=== PATIENT | female | born 2000 | race Hispanic/Latino ===

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

== ENCOUNTER 2021-11-26 09:06 | Outpatient (RCR) | payer OTHER, SELFPAY | END 2022-02-11 11:34 | disposition home or self-care (01) | LOC: ANHDMC 09:06 | PROVIDERS: PCP Pediatrics; Visit Provider Obstetrics & Gynecology | DX: O24.419 Gestational diabetes mellitus in pregnancy, unspecified control (principal); Z71.89 Other specified counseling | CPT/HCPCS: G0108 ==

== ENCOUNTER 2022-02-24 07:16 | Outpatient (CLI) | payer OTHER, SELFPAY ==
[2022-02-24 08:27] LABS: Basophils Absolute Auto 0.1 K/mm3 (0.0-0.1); Basophils Percent Auto 0.4 % (0.2-1.2); Eosinophils Absolute Auto 0.3 K/mm3 (0-0.3); Eosinophils Percent Auto 2.3 % (0-4.4); Hematocrit 36.4 % (37.0-47.0); Hemoglobin 12.3 g/dL (12.0-15.0); Immature Granulocyte Absolute 0.05 K/mm3 (0.00-0.031); Immature Granulocyte Percent A 0.4 % (0-0.5); Lymphocytes Absolute Auto 4.11 K/mm3 (0.9-3.2); Lymphocytes Percent Auto 33.8 % (18.3-44.2); Mean Corpuscular HGB Conc 33.8 g/dl (32-36); Mean Corpuscular Hemoglobin 29.9 pg (26-34); Mean Corpuscular Volume 88.6 fl (80-100); Mean Platelet Volume 9.9 fl (7.4-10.4); Monocytes Absolute Auto 0.9 K/mm3 (0.1-0.6); Monocytes Percent Auto 7.6 % (2.6-8.5); Neutrophils Absolute Auto 6.7 K/mm3 (1.3-6.7); Neutrophils Percent Auto 55.5 % (45.5-73.1); Platelet Count Result 257 k/mm3 (150-375); Red Blood Count 4.11 M/mm3 (4.2-5.4); Red Cell Distribution Width 12.5 % (11.5-14.5); White Blood Count 12.2 K/mm3 (4.5-10.0)
[2022-02-24 09:25] LABS: HIV 1/2 Ab P24 Ag Result Negative (Negative)
[2022-02-24] MEDS: RHO(D) IMMUNE GLOBULIN 300 MCG/2 ML SYRINGE IM (12:39)
== END 2022-02-24 07:17 | disposition home or self-care (01) ==
LOC: ANHLAB 07:18
PROVIDERS: Student in an Organized Health Care Education/Training Program; PCP Pediatrics; Visit Provider Obstetrics & Gynecology
DX: Z34.90 Encounter for supervision of normal pregnancy, unspecified, unspecified trimester (principal); Z3A.00 Weeks of gestation of pregnancy not specified
CPT/HCPCS: 36415; 85025; 85461; 86703; 86850; 86900; 86901; 90384; 96372; G0432; J2790

== ENCOUNTER 2022-04-14 23:25 | Inpatient (IN) | payer OTHER, SELFPAY ==
[2022-04-15] VITALS (208 sets, daily range): BP systolic 89–163; BP diastolic 32–97; PULSE 25–131; RESP 16–18; TEMP 36.4–37.7; O2SAT 91–100; BMI 38.7
[2022-04-15 00:47] LABS: Basophils Percent Auto 0.3 % (0.2-1.2); Eosinophils Absolute Auto 0.1 K/mm3 (0-0.3); Eosinophils Percent Auto 0.9 % (0-4.4); Hematocrit 36.5 % (37.0-47.0); Hemoglobin 12.8 g/dL (12.0-15.0); Immature Granulocyte Absolute 0.09 K/mm3 (0.00-0.031); Immature Granulocyte Percent A 0.7 % (0-0.5); Lymphocytes Absolute Auto 3.51 K/mm3 (0.9-3.2); Lymphocytes Percent Auto 27.7 % (18.3-44.2); Mean Corpuscular HGB Conc 35.1 g/dl (32-36); Mean Corpuscular Hemoglobin 30.6 pg (26-34); Mean Corpuscular Volume 87.3 fl (80-100); Mean Platelet Volume 10.9 fl (7.4-10.4); Monocytes Percent Auto 7.8 % (2.6-8.5); Neutrophils Absolute Auto 7.9 K/mm3 (1.3-6.7); Neutrophils Percent Auto 62.6 % (45.5-73.1); Platelet Count Result 214 k/mm3 (150-375); Red Blood Count 4.18 M/mm3 (4.2-5.4); Red Cell Distribution Width 12.9 % (11.5-14.5); White Blood Count 12.7 K/mm3 (4.5-10.0)
--- NOTE | 2022-04-15 00:49 | LDADM ---
This patient, Ann Guevara, was admitted to Labor/Delivery/Recovery 106 on 04/14/22 at 23:25. Plans for labor, pain management and were discussed with patient. Patient/family oriented to hospital policies and general routines including ID bracelet, bed and alarms, visiting hours, pain management, procedures, bathroom and other care routines, personal items, smoking policy, room service/diet and guest tray routines, security routines, and visiting hours. Patient/Family are encouraged to report perceived risks to care and to ask questions if they do not understand what they are told or what they should do. See OBIX for further documentation.
[2022-04-15 00:58] LABS: Alanine Aminotransferase 14 U/L (6-35); Albumin Level 3.3 g/dL (3.5-5.1); Alkaline Phosphatase 227 U/L (38-126); Anion Gap 4 mmol/L (8-16); Aspartate Amino Transferase 19 U/L (14-36); Bilirubin,Total 0.3 mg/dL (0.2-1.3); Blood Urea Nitrogen 11 mg/dL (7-17); Calcium 8.7 mg/dL (8.4-10.2); Carbon Dioxide 22 mmol/L (22-30); Chloride 108 mmol/L (98-107); Estimated CRCL calculation 160 ml/min; Estimated Glomerular Filt Rate > 60; Glucose 180 mg/dL (65-110); Potassium 4.1 mmol/L (3.4-5.0); Sodium 134 mmol/L (137-145); Uric Acid 2.9 mg/dL (2.5-7.5)
[2022-04-15] MEDS: LACTATED RINGERS 1,000 ML 125 ML IV CONT ×2 (01:05→08:01)
[2022-04-15] MEDS: AMPICILLIN 2 GM/NS 100 ML 2 GM/100 ML BAG IVPB (01:06)
[2022-04-15 01:43] LABS: Glucose Point of Care 166 mg/dl (65-105)
[2022-04-15] MEDS: LABETALOL HCL INJ 100 MG/20 ML VIAL 20 MG IV PUSH (02:18)
[2022-04-15] MEDS: MAGNESIUM SULF 4 GM/WATER100ML 4 GM/100 ML BAG IVPB (02:34)
[2022-04-15] MEDS: MAGNESIUM SULF 20GM/WATER500ML 500 ML 50 MG IV CONT (02:54)
[2022-04-15] MEDS: AMPICILLIN 1 GM/NS 50 ML 1 GM/50 ML BAG IVPB ×2 (05:13→09:43)
[2022-04-15 05:40] LABS: Glucose Point of Care 171 mg/dl (65-105)
--- NOTE | 2022-04-15 06:36 | WPDANESEPP ---
Anes - Eval Pre Procedure Procedure: labor epidural Date/Time: 04/15/22 06:36 Surgeon: jolynn Preop Diagnosis: pain during labor Pre Op Diagnosis: Contractions Patient Data Age: 22 Gender: F Height: 1.57 m Weight: 96 kg Last Vital Signs Temp 36.8 C 04/15/22 05:30 Pulse 91 04/15/22 06:31 Resp 16 04/15/22 02:30 BP 133/73 04/15/22 06:31 Pulse Ox 99 04/15/22 04:00 O2 Del Method Room Air 04/15/22 00:46 Allergies Allergy/AdvReac Type Severity Reaction Status Date / Time No Known Allergies Allergy Mild Verified 04/01/22 09:14 Home Medications Medication Instructions Recorded Confirmed Type vitamins-iron fumarate 65 1 tablet PO DAILY 11/11/21 01/06/22 History mg iron-folic acid 1 mg tablet Laboratory Tests 04/15/22 04/15/22 04/15/22 00:20 00:20 00:20 WBC 12.7 K/mm3 H K/mm3 (4.5-10.0) RBC 4.18 M/mm3 L M/mm3 (4.2-5.4) Hgb 12.8 g/dL g/dL (12.0-15.0) Hct 36.5 % L % (37.0-47.0) MCV 87.3 fl fl (80-100) MCH 30.6 pg pg (26-34) MCHC 35.1 g/dl g/dl (32-36) RDW 12.9 % % (11.5-14.5) Plt Count 214 k/mm3 k/mm3 (150-375) MPV 10.9 fl H fl (7.4-10.4) Immature Gran % (Auto) 0.7 % H % (0-0.5) Neut % (Auto) 62.6 % % (45.5-73.1) Lymph % (Auto) 27.7 % % (18.3-44.2) Stearns % (Auto) 7.8 % % (2.6-8.5) Eos % (Auto) 0.9 % % (0-4.4) Baso % (Auto) 0.3 % % (0.2-1.2) Lymph # (Auto) 3.51 K/mm3 H K/mm3 (0.9-3.2) Stearns # (Auto) 1.0 K/mm3 H K/mm3 (0.1-0.6) Eos # (Auto) 0.1 K/mm3 K/mm3 (0-0.3) Baso # (Auto) 0.0 K/mm3 K/mm3 (0.0-0.1) Abs Immat Gran (auto) 0.09 K/mm3 H K/mm3 (0.00-0.031) Absolute Neuts (auto) 7.9 K/mm3 H K/mm3 (1.3-6.7) Absolute Nucleated RBC 0.0 K/mm3 K/mm3 (0.0-0.012) Nucleated RBC % 0.0 % % (0.0-0.2) Sodium Potassium Chloride Carbon Dioxide Anion Gap BUN Creatinine Estim Creat Clear Calc Estimated GFR Glucose POC Capillary Glucose Uric Acid Calcium Total Bilirubin AST ALT Alkaline Phosphatase Total Protein Albumin U Random Total Protein Urine Creatinine Protein/Creat Ratio 2 RPR Pending Blood Type O Negative Antibody Screen Negative 04/15/22 04/15/22 04/15/22 00:41 00:41 01:38 WBC RBC Hgb Hct MCV MCH MCHC RDW Plt Count MPV Immature Gran % (Auto) Neut % (Auto) Lymph % (Auto) Stearns % (Auto) Eos % (Auto) Baso % (Auto) Lymph # (Auto) Stearns # (Auto) Eos # (Auto) Baso # (Auto) Abs Immat Gran (auto) Absolute Neuts (auto) Absolute Nucleated RBC Nucleated RBC % Sodium 134 mmol/L L mmol/L (137-145) Potassium 4.1 mmol/L mmol/L (3.4-5.0) Chloride 108 mmol/L H mmol/L (98-107) Carbon Dioxide 22 mmol/L mmol/L (22-30) Anion Gap 4 mmol/L L mmol/L (8-16) BUN 11 mg/dL mg/dL (7-17) Creatinine 0.50 mg/dL L mg/dL (0.7-1.0) Estim Creat Clear Calc 160 ml/min ml/min Estimated GFR > 60 (59 - ) Glucose 180 mg/dL H mg/dL (65-110) POC Capillary Glucose 166 mg/dl H mg/dl (65-105) Uric Acid 2.9 mg/dL mg/dL (2.5-7.5) Calcium 8.7 mg/dL mg/dL (8.4-10.2) Total Bilirubin 0.3 mg/dL mg/d
[2022-04-15] MEDS: OXYTOCIN 30 UNITS/NS 500 ML 30 UNITS/500 ML BAG IV CONT (07:30)
[2022-04-15] MEDS: ONDANSETRON INJ 4 MG/2 ML VIAL IV PUSH (07:41)
--- NOTE | 2022-04-15 07:59 | PM.IMHP ---
H&P: HPI History of Present Illness Date/Time: 04/15/22 07:59 Chief Complaint: Intrauterine at term Narrative: 22-year-old G1 who presents with premature rupture of membranes at 35w2d. She reports good movement. She denies any abdominal pain, fevers, chills. She denies any vaginal bleeding. patient's has been complicated by gestational diabetes controlled with diet. Patient was also noted to have GBS bacteriuria Review of Systems Cardiovascular: Cardiovascular: Denies chest pain, Denies leg edema, Denies palpitations, Denies dyspnea and Denies dyspnea on exertion Respiratory: Respiratory: Denies cough, Denies dyspnea and Denies dyspnea on exertion Gastrointestinal: Gastrointestinal: Denies abdominal pain, Denies constipation, Denies diarrhea, Denies nausea and Denies vomiting Genitourinary: Genitourinary: Denies hematuria, Denies urinary frequency, Denies dysuria, Denies pelvic pain, Denies urinary incontinence and Denies vaginal discharge Neurologic: Reports system reviewed and no additional complaints, except as documented Psychiatric: Psychiatric: Reports no additional psychiatric complaints Endocrine: Endocrine: Denies palpitations PMFSH Past Medical History Medical History Abnormal glucose tolerance in Gestational diabetes Left forearm fracture Suppression of menstruation Surgical History Surgical History No history of previous surgery Social History Social History Smoking status: Never smoker Alcohol intake: never Substance use: never Substance use type: marijuana Last use: 08/25/2021 Lack of Transportation: No Lack of Food: Never True Current Housing: I Have Housing Concerned About Future Housing: No Difficulty Paying Gas/Electric Bills: No Difficulty Paying for Meds: No Currently Unemployed: No Education: High School Diploma/GED Difficulty w/ Childcare or Family Care: No Living arrangements: other Additional living arrangements comments: single Occupation/Education: student Gender identity (if verbalized by the patient): Female Sexual Orientation (if Verbalized by the Patient): Straight or Heterosexual Spiritual care concerns: No Meds Home Medications and Allergies Home Medications Medication Instructions Recorded Confirmed Type vitamins-iron fumarate 65 1 tablet PO DAILY 11/11/21 01/06/22 History mg iron-folic acid 1 mg tablet Allergies Allergy/AdvReac Type Severity Reaction Status Date / Time No Known Allergies Allergy Mild Verified 04/01/22 09:14 Vital Signs Vital Signs - 24 hr 04/15/22 00:16 04/15/22 00:45 04/15/22 01:00 Temperature Pulse Rate 70 73 86 Respiratory Rate Blood Pressure 160/88 H 142/86 H Pulse Oximetry Oxygen Delivery 04/15/22 01:15 04/15/22 01:31 04/15/22 01:30 Temperature 99.3 F Pulse Rate 74 76 Respiratory Rate 16 Blood Pressure 160/92 H 159/91 H Pulse Oximetry Oxygen Delivery 04/15/22 02:04 04/15/22 02:16 04/15/22 02:22 Temperature Pulse Rate 79 76 92 Respiratory Rate Blood Pressure 163/97 H 140/81 122/78 Pulse Oximetry Oxygen Delivery 04/15/22 02:31 04/15/22 02:35 04/15/22 02:40 Temperature Pulse Rate 79 94 Respiratory Rate Blood Pressure 139/79 134/63 Pulse Oximetry 98 97 Oxygen Delivery 04/15/22 02:45 04/15/22 02:30 04/15/22 02:50 Temperature 99.3 F Pulse Rate 90 91 Respiratory Rate 16 Blood Pressure 127/74 129/74 Pulse Oximetry 97 97 Oxygen Delivery 04/15/22 02:55 04/15/22 03:00 04/15/22 03:05 Temperature Pulse Rate 88 Respiratory Rate Blood Pressure 130/71 Pulse Oximetry 97 97 98 Oxygen Delivery 04/15/22 03:10 04/15/22 03:15 04/15/22 03:20 Temperature
[2022-04-15 09:05] LABS: Rapid Plasma Reagin Non-Reactive (NonReactive)
[2022-04-15 09:07] LABS: Glucose Point of Care 191 mg/dl (65-105)
[2022-04-15] MEDS: PHENYLEPHRINE 1,000 MCG/10 ML SYRINGE 100 MCG IV PUSH ×3 (09:50→10:11)
[2022-04-15] MEDS: INSULIN HUMAN REGULAR (*BKC) 100 UNITS in SODIUM CHLORIDE 0.9% IV 99 ML IV CONT (09:59)
[2022-04-15 10:06] LABS: Glucose Point of Care 183 mg/dl (65-105)
[2022-04-15 11:04] LABS: Glucose Point of Care 189 mg/dl (65-105)
[2022-04-15] MEDS: INSULIN HUMAN REGULAR (*BKC) 100 UNITS/ML IV PUSH (12:03)
[2022-04-15 12:07] LABS: Glucose Point of Care 185 mg/dl (65-105)
[2022-04-15] MEDS: OXYTOCIN 30 UNITS/NS 500 ML 30 UNITS/500 ML BAG 125 UNITS IV CONT (14:42)
--- NOTE | 2022-04-15 15:57 | PM.OBPRVD ---
OB - Delivery Note Procedure Delivery date: 04/15/22 Procedure: Patient pushed for a spontaneous vaginal delivery. The fetus was delivered atraumatically and placed on the maternal abdomen. The cord was clamped and cut after 1 minute of life. The cord was double clamped and cut and a segment of cord was collected for cord gases. Cord blood was collected for blood type and Coomb's testing. The placenta delivered spontaneously and was noted to be intact. The perineum was inspected and there was a 2nd degree perineal laceration. The laceration was repaired with 2-0 vicryl in the usual fashion. The uterus was firm and good hemostasis was noted. The patient and fetus were stable in the delivery room. Events: Gestational Diabetes and Premature Rupture of Membranes Intrapartal Events: Ineffetive Pushing/Maternal Exhaustion Induction method: None Delivery augmentation: Pitocin Delivery monitor: External FHT and Internal Uterine Route of delivery: Episiotomy description: Right Mediolateral Laceration Description: Perineal - 2nd Degree Delivery repair: vicryl Specimen: Yes (placenta) Quantitative Blood Loss (ml): 350 Anesthesia type: Epidural Disposition: Floor () Complications: No immediate complications Baby Date of : 04/15/22 Weeks of gestation at delivery: 35 gender: Male Weight (pounds): 7 Weight (ounces): 10 presentation: vertex position: Right Occiput Anterior Placenta delivery description: Spontaneous Cord Vessel Description: 3 Vessels score one minute: 6 score five minutes: 7 score ten minutes: 8 AMG Delivery Billing Delivery Delivery: Delivery Charge
[2022-04-15] MEDS: BENZOCAINE 20% AER SPR (*SP) 56 GM CAN 1 SPRAY TOPICAL (16:44)
[2022-04-15] MEDS: WITCH HAZEL 40 PADS 1 PAD TOPICAL (16:44)
--- NOTE | 2022-04-15 16:55 | OBPPTRN ---
Patient transferred to post room #282 via wheelchair. Support person present. Oriented to unit, room, information board, rooming in, admission packet and security measures. Patient verbalizes understanding.
--- NOTE | 2022-04-15 17:00 | PC.NURSE ---
Breast pump provided due to separation from infant. Instructions given on cleaning, care, usage, that there should be no pain, pumping schedule for milk production, collection, and storage of human milk. Patient was assessed for correct placement, flange size, to pump for comfort and nipple stretching/stimulation for adequate milk production every 3 hours (8 times in 24 hours) 1-2 times at night.
[2022-04-15] MEDS: IBUPROFEN 600 MG TABLET PO (21:30)
[2022-04-16 00:05] VITALS: BP 140/89; PULSE 71; RESP 16; TEMP 36.6
[2022-04-16 04:05] VITALS: BP 122/73; PULSE 84; RESP 18; TEMP 36.6
[2022-04-16 05:14] LABS: Hematocrit 30.5 % (37.0-47.0); Hemoglobin 10.4 g/dL (12.0-15.0)
--- NOTE | 2022-04-16 06:58 | PM.OBDSVD ---
DS: Admitting Diagnosis Discharge Date 04/16/22 Admitting Diagnosis premature rupture of membranes gestational diabetes DS: Discharge Diagnosis Discharge Diagnosis (1) Gestational diabetes: Code(s): O24.419 - Gestational diabetes mellitus in , unspecified control Status: Acute (2) premature rupture of membranes: Code(s): O42.919 - premature rupture of membranes, unspecified as to length of time between rupture and onset of labor, unspecified trimester Status: Acute (3) : Code(s): Z34.90 - Encounter for supervision of normal , unspecified, unspecified trimester Status: Acute OB - DS: Summary OB Procedures : None OB Procedures Intrapartum: Spontaneous Vag Delivery OB Procedures: : None Status at Discharge Functional status at discharge: independent ambulation Overall status at discharge: patient is back to baseline Time Spent with Patient Time attestation: Total time spent providing and/or coordinating discharge services: Time spent: Less than 30 minutes Exam Const: General: comfortable and no acute distress Resp: Effort & Inspection: normal respiratory effort Auscultation: clear to auscultation bilaterally Cardio: Rate: regular rate GI: GI Palp: Yes Soft to palpation Auscultation: normal bowel sounds Other: Fundus firm below umbilicus Psych: Appearance: grossly normal Mental Status: mental status grossly normal Affect: normal affect DS: Data Data Completed and Pending Pending studies at discharge: Pending at discharge 04/15/22 14:45 Surgical [PTH] Routine Labs on day of discharge: Labs from last 24 hours 04/16/22 04/16/22 04/15/22 04:12 04:12 12:05 Hgb 10.4 L Hct 30.5 L POC Capillary Glucose 185 H RPR Blood Type O Negative Antibody Screen Negative Screen Pending Baby's Blood Type Pending Baby's NABEEL Pending Doses of RhIg Required Pending 04/15/22 04/15/22 04/15/22 11:01 09:58 09:04 Hgb Hct POC Capillary Glucose 189 H 183 H 191 H RPR Blood Type Antibody Screen Screen Baby's Blood Type Baby's NABEEL Doses of RhIg Required 04/15/22 00:20 Hgb Hct POC Capillary Glucose RPR Non-reactive Blood Type Antibody Screen Screen Baby's Blood Type Baby's NABEEL Doses of RhIg Required Discharge Plan Discharge Attending physician on discharge: Mario Álvarez Discharging Clinician: Mario Álvarez Patient Disposition: Home, Self-Care Activity: as tolerated and pelvic rest Diet: regular Patient Instructions: Antibiotic Form, Vaginal Delivery (DC) Stand Alone Forms: General Discharge Information Follow-up/Referrals: Mario Álvarez MD [Physician] - Discharge Medications: New acetaminophen [Mapap (acetaminophen)] 325 mg Tablet 650 mg PO Q6H PRN (Reason: Mild Pain (1-3) Or Headache) Qty: 30 0RF ibuprofen 600 mg Tablet 600 mg PO Q6H PRN (Reason: Cramping) Qty: 30 0RF Continued vit-iron fum-folic ac 65 mg iron- 1 mg tablet 1 tablet PO DAILY Date of admission: 04/14/22 23:25 Primary Care Provider: Elder Chase Admitting Provider: Mario Álvarez Attending physician on admission: Mario Álvarez Condition: Stable
[2022-04-16] MEDS: IBUPROFEN 600 MG TABLET PO (08:39)
[2022-04-16] MEDS: DOCUSATE SODIUM 100 MG CAPSULE PO (08:40)
[2022-04-16] MEDS: MULTIVIT/MIN/PREN/FOL AC/IRON TABLET 1 TAB PO (08:40)
[2022-04-16 09:00] VITALS: BP 125/78; PULSE 75; RESP 16; TEMP 36.7; O2SAT 98
[2022-04-16] MEDS: RHO(D) IMMUNE GLOBULIN 300 MCG/2 ML SYRINGE IM (10:16)
[2022-04-16 12:20] VITALS: BP 136/75; PULSE 97; RESP 16; TEMP 36.8; O2SAT 98
--- NOTE | 2022-04-16 12:26 | WPDANLDPN2 ---
Anes-Prog Note L&D Date/Time: 04/16/22 12:26 Comfortable throughout: labor Neuraxial method: epidural Epidural/Spinal procedure site: clean & non-tender Neuro status: Neuro function grossly intact. Cardiovascular status: normal Respiratory status: normal Airway patency: baseline Mental status: baseline Post-Op hydration status: normal Vital Signs: Last Vital Signs Temp 36.8 C 04/16/22 12:20 Pulse 97 04/16/22 12:20 Resp 16 04/16/22 12:20 BP 136/75 04/16/22 12:20 Pulse Ox 98 04/16/22 12:20 O2 Del Method Room Air 04/16/22 08:40 Pain score (VAS): 0 I/O: Intake & Output 04/15/22 04/16/22 04/16/22 23:59 07:59 15:59 Intake Total 750 1000 Output Total 370 850 Balance 380 150 Patient feedback: Patient satisfied with anesthetic care.
[2022-04-16] MEDS: MEASLES,MUMPS,RUBELLA VACCINE 0.5 ML VIAL SUB-Q (12:32)
== END 2022-04-16 13:12 | disposition home or self-care (01) | DRG 560 ==
LOC: ANHOBPP 04-15 00:05 → ANHLDR 04-15 00:11 → ANHOB2 04-15 16:55
PROVIDERS: Obstetrics & Gynecology; Admitting Provider Student in an Organized Health Care Education/Training Program; PCP Pediatrics; Visit Provider Student in an Organized Health Care Education/Training Program
DX: O42.013 Preterm premature rupture of membranes, onset of labor within 24 hours of rupture, third trimester (principal); O60.14X0 Preterm labor third trimester with preterm delivery third trimester, not applicable or unspecified; O24.429 Gestational diabetes mellitus in childbirth, unspecified control; Z37.0 Single live birth; Z3A.39 39 weeks gestation of pregnancy; O36.8330 Maternal care for abnormalities of the fetal heart rate or rhythm, third trimester, not applicable or unspecified; O70.1 Second degree perineal laceration during delivery; O99.824 Streptococcus B carrier state complicating childbirth; O75.81 Maternal exhaustion complicating labor and delivery
CPT/HCPCS: 36415; 80053; 82948; 84112; 84550; 85014; 85018; 85025; 85461; 86592; 86850; 86900; 86901; 88307; 90384; 90710; A9270; J0290; J1815; J2370; J2405; J2590; J2790; J2795; J3475; J7120

== ENCOUNTER 2022-10-21 20:24 | Emergency (ER) | payer OTHER, SELFPAY ==
--- NOTE | ~2022-10-21 | XR_ITS ---
EXAM: XR wrist RT min 3V DATE: 10/21/2022 21:59 HISTORY: pain, ganglion cyst . COMPARISON: None available. FINDINGS: Normal mineralization. No fracture or dislocation. No lytic or blastic lesion. Joint space s are maintained. No erosion or periosteal change. Soft tissue nodule over the dorsal wrist, which co uld be consistent with the given history of ganglion cyst. IMPRESSION: No acute osseous finding in the right wrist. Reviewed, dictated and finalized at location K.
[2022-10-21 20:26] VITALS: BP 126/74; PULSE 76; RESP 18; TEMP 36.4; O2SAT 98
--- NOTE | 2022-10-21 21:43 | ED.GENADULT ---
HPI - General Adult General Chief complaint: Unspecified Stated complaint: R hand nodule Time Seen by Provider: 10/21/22 21:41 History of Present Illness HPI narrative: 22-year-old female reports for evaluation for a lump to the dorsum of her right wrist for the past few months. Patient reports emergency department today because she is developed pain in this area for the past couple of weeks. She describes the pain as a dull ache and is worse at the end of the day. She reports decreased extension of her wrist secondary to the lump. She states it feels like a gummy . Related Data Allergies Allergy/AdvReac Type Severity Reaction Status Date / Time No Known Allergies Allergy Mild Verified 10/21/22 22:00 Review of Systems Review of Systems: CONSTITUTIONAL: Denies fever, chills EYES: Denies visual changes, redness, or discharge. ENT: Denies rhinorrhea, congestion, sore throat, or otalgia. CARDIOVASCULAR: Denies chest pain, palpitations, or edema. RESPIRATORY: Denies cough or dyspnea. GASTROINTESTINAL: Denies abdominal pain, nausea, vomiting, or diarrhea. GENITOURINARY: Denies dysuria or hematuria. SKIN: Denies rash or itching. MUSCULOSKELETAL: See HPI NEUROLOGIC: Denies headache, numbness, dizziness, or weakness. PSYCHIATRIC: Denies anxiety or depression. [facility] Past Medical History Medical History Abnormal glucose tolerance in Encounter for gynecological examination Gestational diabetes Left forearm fracture Suppression of menstruation Surgical History Surgical History No history of previous surgery Social History Social History Smoking status: Never smoker Alcohol intake: never Substance use: never Substance use type: marijuana Last use: 08/25/2021 Lack of Transportation: No Lack of Food: Never True Current Housing: I Have Housing Concerned About Future Housing: No Difficulty Paying Gas/Electric Bills: No Difficulty Paying for Meds: No Currently Unemployed: No Education: High School Diploma/GED Difficulty w/ Childcare or Family Care: No Living arrangements: other Additional living arrangements comments: single Occupation/Education: student Gender identity (if verbalized by the patient): Female Sexual Orientation (if Verbalized by the Patient): Straight or Heterosexual Spiritual care concerns: No Exam Narrative: GENERAL: Well-appearing, in no acute distress. Patient resting comfortably in exam bed. She is pleasant and conversational HEAD: Normocephalic NECK: Supple. CHEST: No respiratory distress. Clear to auscultation, no adventitious breath sounds. HEART: Regular rate and rhythm. No murmur heard. Normal peripheral pulses. EXTREMITIES: 1 cm ganglion cyst overlying the dorsum of the right wrist. No overlying erythema or warmth. Full range of motion of wrist and fingers. Cap refill less than 2. Sensation intact. SKIN: Warm, dry, no rash. NEURO: No focal deficits. Alert and oriented x3. PSYCH: Normal mood and affect. Course Vital Signs Vital signs: Vital Signs Temperature 97.5 F L 10/21/22 20:26 Pulse Rate 76 10/21/22 20:26 Respiratory Rate 18 10/21/22 20:26 Blood Pressure 126/74 10/21/22 20:26 Pulse Oximetry 98 10/21/22 20:26 Temperature 97.5 F L 10/21/22 20:26 Pulse Rate 76 10/21/22 20:26 Respiratory Rate 18 10/21/22 20:26 Blood Pressure 126/74 10/21/22 20:26 Pulse Oximetry 98 10/21/22 20:26 Medical Decision Making MDM Narrative Medical decision making narrative: 22-year-old female reports for evaluation for a lump to the dorsum of her right wrist for the past few months. See HPI for further history. Vitals are stable. Exam consistent with a ganglion cyst over the dorsum of the right wrist. Patient is neurovas
[2022-10-21] MEDS: ACETAMINOPHEN 500 MG TABLET 1000 MG PO (21:59)
[2022-10-21 22:34] VITALS: BP 126/78; PULSE 68; RESP 16; O2SAT 100
== END 2022-10-21 22:35 | disposition home or self-care (01) ==
LOC: ANHED 22:07
PROVIDERS: Emergency Provider Physician Assistant
DX: M67.431 Ganglion, right wrist (principal)
CPT/HCPCS: 73110; 99283; A9270

== ENCOUNTER 2023-01-07 02:12 | Day surgery (SDC) | payer OTHER, SELFPAY ==
--- NOTE | 2023-01-01 10:01 | PC.NURSE ---
Report to the Outpatient Waiting Room, entrance under the green pavilion located off [facility], at time 0900 on date 01/07/23. Planned Procedure Time: 1100. Time changes happen often and if your time is changed the preop area will call you the afternoon before. - You and your visitor will be asked to self-screen and do not enter if you have any COVID symptoms. - A mask is optional within the hospital at this time. Patients may have clear liquids (water, carbonated beverages, clear teas, apple juice) until 3 hours prior to surgery with a maximum of 20 ounces. - No food from midnight until time of surgery Take the following medications with a SIP of water the morning of surgery: CONTROL DO NOT STOP ANY OF YOUR OTHER PRESCRIPTION MEDICATIONS PRIOR TO SURGERY ?EXCEPT THE FOLLOWING Medications to discontinue per physician: N/A Date to take last dose: N/A Please no make-up, nail trinidadian, hairspray, perfume, deodorant, or body powder the day of surgery. No jewelry (including any body piercings) or valuables the day of surgery, leave them at home. Please take a shower or bath the night before, or the morning of, surgery with an antibacterial soap. Wear comfortable, loose fitting clothing. - Jewelry must be removed prior to entering the operating room. Rings and piercings that are not removed may be cut off. - The hospital will not accept responsibility for valuables. - Please leave all valuables, including medications, at home the day of surgery. If you are going home after surgery, a licensed regional flatbed truck driver must drive you home. - NO public transportation without another adult if you receive anesthesia. - We recommend that an adult stay with you for 24 hours following discharge. - We also recommend that you do not drive, make important decision, drink alcoholic beverages, or take any drugs that were not prescribed by your health care provider for at least 24 hours after your discharge time. Follow any additional instructions given to you from your surgeon. If you or anyone in your household have experienced Covid symptoms in the past week, please notify your surgeon or the nurse liaison at the phone number below for possible testing. Telephone instructions given to PT - SHON CASTELLANOS and asked if any additional questions and then verbalized understanding. Patient advised to call surgeon office or pre surgery nurse liaison [phone] if any additional questions.
--- NOTE | 2023-01-07 07:13 | WPDHPUPDATE1 ---
History and Physical Update Update Date/Time: 01/07/23 07:13 History and Physical has been reviewed, including an updated exam of the patient. There are NO changes in the patient's condition. Risks, benefits, and alternatives have been discussed and questions answered. Patient agrees to proceed with procedure.
[2023-01-07] MEDS: LACTATED RINGERS 1,000 ML 30 ML IV CONT (09:30)
[2023-01-07 10:02] VITALS: BP 120/82; PULSE 67; RESP 16; TEMP 36.6; O2SAT 98
--- NOTE | 2023-01-07 10:28 | WPDANESEPPF ---
Anes - Initial Pre Proc Eval Procedure: Operation Date: 01/07/23 11:00 Proposed Procedures p Excision Ganglion Cyst Right Dorsal Wrist - Claus Norman MD Date/Time: 01/07/23 10:28 Surgeon: Claus Norman MD Pre Op Diagnosis: Ganglion Cyst Right Dorsal Wrist Patient Data Age: 22 Gender: F Height: 1.59 m Weight: 98.3 kg Last Vital Signs Temp 97.9 F 01/07/23 10:02 Pulse 67 01/07/23 10:02 Resp 16 01/07/23 10:02 BP 120/82 01/07/23 10:02 Pulse Ox 98 01/07/23 10:02 O2 Del Method Room Air 01/07/23 10:02 Allergies Allergy/AdvReac Type Severity Reaction Status Date / Time No Known Allergies Allergy Mild Verified 01/07/23 09:17 Home Medications Medication Instructions Recorded Confirmed Type norethindrone 1 mg-ethinyl 1 tablet PO DAILY #84 tabs 09/01/22 01/07/23 Rx estradiol 20 mcg (21)-iron 75 mg (7) tablet (03/13 ()) Patient hx anesthesia problems: none Family hx anesthesia problems: none Results Review: All pre-operative results and documents have been reviewed as part of the pre-operative evaluation. [facility] Past Medical History Medical History Abnormal glucose tolerance in Encounter for gynecological examination Gestational diabetes Left forearm fracture Suppression of menstruation Surgical History Surgical History No history of previous surgery Social History Social History Smoking status: Never smoker Alcohol intake: never Substance use: current Substance use type: marijuana Last use: 08/25/2021 Lack of Transportation: No Lack of Food: Never True Current Housing: I Have Housing Concerned About Future Housing: No Difficulty Paying Gas/Electric Bills: No Difficulty Paying for Meds: No Currently Unemployed: No Education: High School Diploma/GED Difficulty w/ Childcare or Family Care: No Living arrangements: with family Additional living arrangements comments: single Occupation/Education: student Gender identity (if verbalized by the patient): Female Sexual Orientation (if Verbalized by the Patient): Straight or Heterosexual Spiritual care concerns: No Anes - Eval Final PreProcedure Day of Procedure 01/07/23 10:28 Patient weight: morbidly obese Heart: regular rate and rhythm Lungs: clear to auscultation Airway: Mallampati scale class II Neurological: alert and oriented Last oral intake: >/= 8 hours ASA classification: III Emergent: no Anesthetic plan: proceed Anesthesia type and monitoring: general GIVS and standard monitoring Results Review: All pre-operative results and documents have been reviewed as part of the pre-operative evaluation. Informed Consent: The patient's anesthetic plan and its attendant risks and benefits were discussed with the patient/family/POA. Questions were solicited and answers provided to the satisfaction of the patient/family/POA.
[2023-01-07] MEDS: LIDO 1%/EPINEPHRINE 1:100,000 50 ML VIAL INFILTRATE (12:00)
[2023-01-07 12:10] VITALS: BP 106/63; PULSE 97; RESP 14
--- NOTE | 2023-01-07 12:18 | W.PM.PROC2 ---
Procedure Note - Detailed Date of Procedure 01/07/23 Pre-op Diagnosis Ganglion Cyst Right Dorsal Wrist Post-op Diagnosis Same Procedure Performed Excision of ganglion cyst right dorsal wrist Surgeon Claus Norman MD Lockstitch Binder Amaury S Anesthesia MAC Description of Procedure The dome-shaped mass on the patient's right dorsal wrist marked with her consent in the holding area. She was then taken to the operating room she was placed supine table. She was given IV sedation with an LMA and the right upper extremity prepped and draped in usual fashion. The site was remarked for the incision and locally infiltrated with 1% lidocaine with epinephrine. A extremity was exsanguinated and the tourniquet inflated to 250 mmHg. The incision was made as marked and the cyst identified deep in the subcutaneous tissue. Was carefully dissected around the periphery with sharp and blunt dissection tell to be avulsed from its origin. The stump was twice ligated with 3-0 Ethibond [id number] sutures. The tourniquet was released. Direct pressure held for 5 minutes stopped all bleeding. The skin was closed with intradermal 4-0 Monocryl. The usual bandage age with Xeroform and gauze and Albert wrap was applied. Patient was discharged from the operating room stable condition. She has a prescription for hydrocodone 5/325 5.. She has instructions wound care and follow-up. Estimated Blood Loss 1 Drains No Packing No Pathology None sent Complications No immediate complications Disposition Same day
[2023-01-07 12:40] VITALS: BP 120/71; PULSE 78; RESP 20
[2023-01-07 13:10] VITALS: BP 116/68; PULSE 70; RESP 20
== END 2023-01-07 13:21 | disposition home or self-care (01) ==
PROVIDERS: Visit Provider Plastic Surgery
PROC: (CPT 25111; principal; 2023-01-07 11:00)
DX: M67.431 Ganglion, right wrist (principal); E66.01 Morbid (severe) obesity due to excess calories; Z68.39 Body mass index [BMI] 39.0-39.9, adult
CPT/HCPCS: 25111; A9270; J2250; J2405; J2704; J3010; J7120

== ENCOUNTER 2023-06-15 11:00 | Outpatient (RCR) | payer OTHER, SELFPAY ==
--- NOTE | 2023-05-26 08:43 | OTOPEVAL1 ---
Assessment and note entered by Dawson Victor, OTR/Ebony, CHT Evaluation Information Assessment Status Evaluation Diagnosis (R) wrist pain Subjective Information Patient is s/p ganglion cyst excision 01/07/23. She was doing well post op until 1-2 weeks ago she began having increased pain at the surgical site. She is right handed. Reports pain with wrist flexion/extension, with any sort of lifting, and weight bearing. 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 She was unable to use the right UE to push herself up from the bath. Reported Pain Level Pain Score 0: Self Report Additional Pain Score Comments Patient reports no pain at rest. Pain increased to 7/10 with wrist flexion/ extension. Pain increased to 2/10 with gross gripping. Assessment OT Clinical Summary Patient referred to OT with right wrist pain following a ganglion cyst excision. 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 Skilled OT indicated for HEP instruction and progression, therapeutic exercise, modalities, and manual tx to facilitate optimal functional UE use. Plan of Care Interventions Therapeutic Exercise,Manual Therapy,Therapeutic Activities,Hot Pack/Cold Pack,Ultrasound,Paraffin OT Services Indicated Yes Treatment Frequency and 2x/week for 7 visits Duration These treatments will address the objective and functional deficits as defined above. The patient will be advanced safely and appropriately in order for the patient to progress towards his/her prior level of function. Additional exercises will be introduced and as well as a comprehensive home exercise program upon discharge, if needed, ?to ensure carryover of functional gains achieved in the clinic. This treatment plan has been reviewed and agreement upon by the patient.
--- NOTE | 2023-05-26 08:43 | OPREHPOC ---
Outpatient Therapy Plan of Care This is a Multidisciplinary Plan of Care that may contain components documented by all disciplines (PT, OT, and ST.) OT Problem 1 OT Problem #1 Knowledge Deficit OT Goal 1 Goal 1. Patient to be independent with instructed materials. Target Visit 7 OT Problem 2 OT Problem #2 Pain OT Goal 1 Goal 1. Patient to report reduced pain in the right wrist, reporting 2/10 at worst during ADLs. Target Visit 7 OT Problem 3 OT Problem #3 Impaired Flexibility OT Goal 1 Goal 1. Increase right wrist active flexion to 60* 2. Increase right wrist active extension to 50* Target Visit 7 OT Problem 4 OT Problem #4 Impaired Strength OT Goal 1 Goal 1. Patient to be able to complete wrist strengthening in all planes with 3 lb. free weight x10 reps. Target Visit 7
--- NOTE | 2023-06-15 11:47 | OTOPDC ---
Assessment and note entered by Dawson Victor, JOHNR/Ebony, CHT OT Discharge Summary 06/15/23 Diagnosis (R) wrist pain Subjective Information Patient is s/p ganglion cyst excision 01/07/23. She has been working with therapy x1 month. 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 No difficulties with bearing weight through the wrist/ hand. Wrist flexion improved from 50 to 75 degrees Wrist extension improved from 30 to 65 degrees (R) french translator strength improved from 38 to 60 lbs. Reported Pain Level Pain Score 0: Self Report Assessment OT Clinical Summary Patient referred to OT with right wrist pain following a ganglion cyst excision. She has made excellent progress with therapy. Today ROM and strength measurements have returned to normal limits. She is reporting no functional limitations at this time. Discharge OT. Plan of Care OT Services Indicated No
== END 2023-06-15 13:04 | disposition home or self-care (01) ==
LOC: ANHOT 11:00
PROVIDERS: Visit Provider Plastic Surgery
DX: Z48.89 Encounter for other specified surgical aftercare (principal); M25.531 Pain in right wrist
CPT/HCPCS: 97018; 97035; 97110; 97165

== ENCOUNTER 2023-10-27 19:17 | Emergency (ER) | payer OTHER, SELFPAY ==
--- NOTE | ~2023-10-27 | CT_ITS ---
CT scan of the orbits Clinical history: Pain with extraocular movements TECHNIQUE: Following intravenous administration of 75 cc of Omnipaque 350 contrast material, axial im aging of the orbits was performed. Sagittal and coronal reformatted images were constructed. Dose red uction technique was used on this scan by utilizing automated exposure control and iterative reconstr uction technique. The dose-length product (DLP) was 437.17 mGy-cm. Findings: Eyeglobes are symmetric in size and position. Extra ocular muscles appear intact. Optic ner ve sheath apices are grossly unremarkable for contrast enhanced CT scan. No intraluminal mass lesion or abnormal density identified. Intramural fat is preserved. Parapharyngeal fat preserved bilaterally. Parotid and submandibular glands as imaged appear unremarka ble. No lymphadenopathy or other soft tissue mass evident. Visualized paranasal sinuses and mastoid a ir cells are clear. IMPRESSION: Unremarkable exam. Reviewed, dictated and finalized at [facility]. IMPRESSION: Unremarkable exam.
--- NOTE | ~2023-10-27 | CT_ITS ---
Non-contrast Head CT History: Headache Technique: Axial non-contrast imaging of the brain was performed. Dose reduction technique was used on this scan by utilizing automated exposure control and iterative reconstruction technique. The dose -length product (DLP) was 605.33 mGy-cm. Findings: There is no evidence of intracranial hemorrhage, mass lesion, or acute infarct. Brain par enchyma appears normal. The ventricles and subarachnoid spaces are normal in size. The calvarium ap pears normal. The visualized paranasal sinuses and mastoid air cells are clear. Impression: No significant abnormality seen. Reviewed, dictated and finalized at location . Impression: No significant abnormality seen.
[2023-10-27 19:23] VITALS: BP 131/73; PULSE 98; RESP 14; TEMP 37.6; O2SAT 100
[2023-10-27 21:19] VITALS: BP 136/85; PULSE 93; RESP 16; TEMP 37.3; O2SAT 96
[2023-10-27 23:45] VITALS: BP 112/76; PULSE 77; RESP 14; TEMP 37; O2SAT 99
[2023-10-28 01:20] VITALS: BP 117/70; PULSE 66; RESP 14; TEMP 36.6; O2SAT 100
[2023-10-28 01:31] LABS: Basophils Percent Auto 0.5 % (0.2-1.2); Eosinophils Percent Auto 0.5 % (0-4.4); Hematocrit 41.1 % (37.0-47.0); Hemoglobin 13.9 g/dL (12.0-15.0); Immature Granulocyte Absolute 0.02 K/mm3 (0.00-0.031); Immature Granulocyte Percent A 0.5 % (0-0.5); Lymphocytes Absolute Auto 1.44 K/mm3 (0.9-3.2); Lymphocytes Percent Auto 37.6 % (18.3-44.2); Mean Corpuscular HGB Conc 33.8 g/dl (32-36); Mean Corpuscular Hemoglobin 30.1 pg (26-34); Mean Platelet Volume 9.6 fl (7.4-10.4); Monocytes Absolute Auto 0.4 K/mm3 (0.1-0.6); Monocytes Percent Auto 9.1 % (2.6-8.5); Neutrophils Percent Auto 51.8 % (45.5-73.1); Platelet Count Result 233 k/mm3 (150-375); Red Blood Count 4.62 M/mm3 (4.2-5.4); Red Cell Distribution Width 12.3 % (11.5-14.5); White Blood Count 3.8 K/mm3 (4.5-10.0)
[2023-10-28] MEDS: PROCHLORPERAZINE EDISYLATE 10 MG/2 ML VIAL IM (01:31)
[2023-10-28] MEDS: ACETAMINOPHEN 500 MG TABLET 1000 MG PO (01:32)
[2023-10-28] MEDS: diphenhydrAMINE HCl INJ 50 MG/ML VIAL 25 MG IV PUSH (01:32)
[2023-10-28 01:41] LABS: Anion Gap 13 mmol/L (4-12); Blood Urea Nitrogen 10 mg/dL (7-17); Calcium 8.5 mg/dL (8.4-10.2); Carbon Dioxide 23 mmol/L (22-30); Chloride 100 mmol/L (98-107); Estimated CRCL calculation 127 ml/min; Estimated Glomerular Filt Rate > 60; Glucose 137 mg/dL (65-110); Potassium 3.6 mmol/L (3.4-5.0); Sodium 136 mmol/L (137-145)
--- NOTE | 2023-10-28 03:39 | ED.GENADULT ---
HPI - General Adult General Chief complaint: Eye Problems Stated complaint: eye pain Time Seen by Provider: 10/27/23 21:31 History of Present Illness HPI narrative: 23-year-old female presenting ED with chief complaint of eye pain and headache. Patient says that she developed eye pain in both of her eyes 2 days ago. It is worse when she moves her eyes. She also then developed headache. The headache covers her entire head. She does note some blurry vision in her right eye. She denies any fevers chills nausea vomiting or diarrhea. She has no periorbital edema. No trauma. Related Data Allergies Allergy/AdvReac Type Severity Reaction Status Date / Time No Known Allergies Allergy Mild Verified 10/27/23 19:23 [facility] Past Medical History Medical History Abnormal glucose tolerance in Encounter for gynecological examination Gestational diabetes Left forearm fracture Suppression of menstruation Surgical History Surgical History No history of previous surgery Social History Social History Smoking status: Never smoker Alcohol intake: never Substance use: current Substance use type: marijuana Last use: 08/25/2021 Lack of Transportation: No Lack of Food: Never True Current Housing: I Have Housing Concerned About Future Housing: No Difficulty Paying Gas/Electric Bills: No Difficulty Paying for Meds: No Currently Unemployed: No Education: High School Diploma/GED Difficulty w/ Childcare or Family Care: No Living arrangements: with family Additional living arrangements comments: single Occupation/Education: student Gender identity (if verbalized by the patient): Female Sexual Orientation (if Verbalized by the Patient): Straight or Heterosexual Spiritual care concerns: No Exam Narrative: APPEARANCE: No apparent distress. Head: atraumatic. EYES: EOMI, NOSE: Atraumatic NECK: Trachea midline RESPIRATORY: No increased rate of breathing CARDIOVASCULAR: RRR, ABDOMINAL: Non-distended MUSCULOSKELETAl: No obvious deformities NEURO: Alert. Moving 4/4 extremities SKIN:: Warm, dry. Normal color PSYCHIATRIC: Normal affect Eye exam: Minor conjunctival injection, no fluorescein uptake bilaterally, pressures 18 bilaterally. Extraocular eye movements intact. No periorbital edema or signs of infection. Visual acuity 20 70 left, 20 50 right -patient says that she has been told that she is worse vision 1 I than the other but she does not know which 1. Course Vital Signs Vital signs: Vital Signs Temperature 99.6 F 10/27/23 19:23 Pulse Rate 98 10/27/23 19:23 Respiratory Rate 14 10/27/23 19:23 Blood Pressure 131/73 10/27/23 19:23 Pulse Oximetry 100 10/27/23 19:23 Oxygen Delivery Room Air 10/27/23 19:23 Temperature 97.9 F 10/28/23 01:20 Pulse Rate 66 10/28/23 01:20 Respiratory Rate 14 10/28/23 01:20 Blood Pressure 117/70 10/28/23 01:20 Pulse Oximetry 100 10/28/23 01:20 Oxygen Delivery Room Air 10/27/23 19:23 Medical Decision Making MDM Narrative Medical decision making narrative: -Course: 23-year-old female presenting with eye pain and headache. CT of the orbits and head were unremarkable. Eye exam showed no clubbing abrasions, increase in RV pressure any other findings. She was given a migraine cocktail and her pain improved. Visual acuity was rechecked was 20/70 and 20/50. Patient says that she has poor vision in 1 eye although she is not sure which 1. Patient be discharged follow-up with ophthalmology for a more thorough eye exam. No findings at this time outside headache, possibly ocular migraine. -DDX includes but is not limited to: Ocular migraine, tension headache, orbital cellulitis, to neuritis -Independent interpretation of studies: CT head and o
[2023-10-28 04:01] VITALS: BP 114/72; PULSE 75; RESP 16; TEMP 36.6; O2SAT 97
== END 2023-10-28 04:02 | disposition home or self-care (01) ==
PROVIDERS: Emergency Provider Emergency Medicine
DX: R51.9 Headache, unspecified (principal); H57.13 Ocular pain, bilateral
CPT/HCPCS: 36415; 70450; 70481; 80048; 85025; 96372; 96374; 99284; A9270; J0780; J1200; J7040; Q9967

== ENCOUNTER 2024-02-03 11:10 | Outpatient (CLI) | payer OTHER, SELFPAY ==
--- NOTE | ~2024-02-03 | US_ITS ---
US breast RT limited INDICATION: Mastodynia TECHNIQUE: Dedicated Limited right breast ultrasound COMPARISON: No prior studies for comparison. FINDINGS: The right breast is/are composed of normal heterogeneous echotexture without focal solid or cystic mass. IMPRESSION: 1: Normal limited right breast ultrasound. BI-RADS CATEGORY 1 - NEGATIVE Reviewed, dictated and finalized at location B. 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
== END 2024-02-03 11:11 | disposition home or self-care (01) ==
PROVIDERS: Visit Provider Student in an Organized Health Care Education/Training Program
DX: N64.4 Mastodynia (principal)
CPT/HCPCS: 76642